=== PATIENT | male | born 1965 | race African-American/Black ===

== ENCOUNTER 2019-02-04 17:39 | Inpatient (IN) | payer MEDICAID ==
[~2019-02-04] VITALS: Ht 182.9 cm; Wt 111.1 kg
[2019-02-04] MEDS ORDERED: TETANUS, DIPHTHERIA, PERTUSSIS VAC/PF 0.5ML (>7YR OLD) IM ONE (18:30)
[2019-02-04] MEDS ORDERED: BACITRACIN ZINC OINT UDPKT TOP ONE (18:30)
[2019-02-04] MEDS ORDERED: LIDOCAINE HCL/PF 1% 10 MG/ML 5ML VIAL IJ ONE (18:30)
[2019-02-04] MEDS ORDERED: SODIUM CHLORIDE 0.9% 1,000 ML IV ONE (18:45)
[2019-02-04 19:24] LABS: BASOPHILS % 0.9 % (0.0-2.0); EOSINOPHILS % 1.8 % (0.0-5.0); HEMATOCRIT. 41.9 % (42.0-52.0); LYMPHOCYTES % 20.2 % (20.0-50.0); MEAN CORPUSCULAR HEMOGLOBIN 29.3 pg (28.0-32.0); MEAN CORPUSCULAR VOLUME 87.9 fL (80.0-94.0); MEAN PLATELET VOLUME 7.4 fl (7.4-10.4); NEUTROPHILS % 67.1 % (40.0-76.0); PLATELET 342 x1000/uL (130-400); RED BLOOD CELL COUNT 4.77 mill/uL (4.7-6.1)
[2019-02-04 19:30] LABS: CHLORIDE 107 mEq/L (98-107)
[2019-02-04] MEDS ORDERED: KETOROLAC 30MG/ML VIAL IV ONE (19:30)
[2019-02-04] MEDS ORDERED: IOHEXOL-300 100 ML BOTTLE ONE (21:11)
[2019-02-04] MEDS ORDERED: VANCOMYCIN 1 G PREMIX 200 ML IV ONE (21:15)
[2019-02-04] MEDS ORDERED: PIPERACILLIN/TAZ 3.375G PREMIX 50 ML IV ONE (21:15)
[2019-02-04] MEDS ORDERED: SODIUM CHLORIDE 0.9% 1,000 ML IV SCH (23:06)
[2019-02-04] MEDS ORDERED: IBUPROFEN 600MG TABLET PO PRN (23:15)
[2019-02-05] VITALS: BP 136/88
[2019-02-05] MEDS ORDERED: CLONIDINE 0.1MG TABLET PO PRN
[2019-02-05] MEDS ORDERED: ACETAMINOPHEN 325MG TABLET PO PRN
[2019-02-05] MEDS ORDERED: GUAIFENESIN 200MG/10ML SUGAR FREE UDC PO PRN
[2019-02-05] MEDS ORDERED: IPRATROPIUM/ALBUTEROL 0.5-3(2.5)MG/3ML NEB INH PRN
[2019-02-05] MEDS ORDERED: ENOXAPARIN 40MG/0.4ML SYR SUBCUT SCH
[2019-02-05] MEDS ORDERED: KETOROLAC 15MG/ML VIAL IV PRN
[2019-02-05] MEDS ORDERED: ONDANSETRON HCL 4MG/2ML INJ IV PRN
[2019-02-05] MEDS ORDERED: DOCUSATE SODIUM 100MG CAPSULE PO PRN
[2019-02-05] MEDS ORDERED: MAGNESIUM/ALUMINUM HYDROXIDE/SIMETHICONE 30ML UDC PO PRN
[2019-02-05] MEDS ORDERED: ZOLPIDEM TARTRATE 5MG TABLET PO PRN
[2019-02-05 00:30] VITALS: BP 136/80
[2019-02-05] MEDS ORDERED: IBUPROFEN 600MG TABLET PO PRN (00:30)
[2019-02-05] MEDS: CLINDAMYCIN 600 MG in DEXTROSE 5% WATER 50 ML IV SCH ×2 (03:28→08:45)
[2019-02-05 04:00] VITALS: BP 141/83
[2019-02-05] MEDS ORDERED: ALBU05 NEB (04:29)
[2019-02-05 08:00] VITALS: BP 117/68
[2019-02-05] MEDS ORDERED: FAMOTIDINE 20MG TABLET PO SCH (09:00)
[2019-02-05] MEDS ORDERED: ENOXAPARIN 30MG/0.3ML SYR SUBCUT SCH (09:00)
[2019-02-05 10:06] VITALS: BP 117/68
== END 2019-02-05 11:00 | disposition home or self-care (01) | DRG 114 ==
LOC: ER 18:06 → 6EST 21:09 → EDBEDREQ 22:25 → EDBEDREQSVC 22:25 → ENRESERV 22:44
PROVIDERS: ADMIT Internal Medicine; ATTEND Internal Medicine
DX: K04.7 Periapical abscess without sinus (principal); L02.01 Cutaneous abscess of face; L03.211 Cellulitis of face
CPT/HCPCS: 36415; 70487; 80048; 96374; 99285; J1650; J1885; J2543; J3370; J3490; J7030; J7060; Q9967

== ENCOUNTER 2019-03-17 17:22 | Emergency (ER) | payer MEDICAID ==
[~2019-03-17] VITALS: Ht 185.4 cm; Wt 108.0 kg
[~2019-03-17 17:22] MED LIST: ALBU05 NEB
[2019-03-17] MEDS ORDERED: LIDOCAINE HCL/PF 1% 10 MG/ML 5ML VIAL IJ ONE (18:00)
[2019-03-17] MEDS ORDERED: BACITRACIN ZINC OINT UDPKT TOP ONE (18:00)
[2019-03-17 20:14] VITALS: BP 134/72
== END 2019-03-17 20:14 | disposition home or self-care (01) ==
LOC: ER 17:22
DX: S01.81XA Laceration without foreign body of other part of head, initial encounter (principal); X58.XXXA Exposure to other specified factors, initial encounter; Y93.89 Activity, other specified; Y92.9 Unspecified place or not applicable
CPT/HCPCS: 12011; 99283; J3490

== ENCOUNTER 2025-05-02 02:02 | Emergency (ER) | payer MEDICAID ==
[~2025-05-02] VITALS: Ht 182.9 cm; Wt 90.0 kg
[2025-05-02 02:20] VITALS: TEMP 36.9; O2SAT 98
[2025-05-02] MEDS ORDERED: IBUP-2028 MT (04:20)
[2025-05-02] MEDS ORDERED: NAPHADR LEFTEYE (04:20)
[2025-05-02 05:09] VITALS: BP 139/88; PULSE 70; RESP 16; O2SAT 97
== END 2025-05-02 05:11 | disposition home or self-care (01) ==
LOC: ER 02:02
DX: H11.32 Conjunctival hemorrhage, left eye (principal); J45.909 Unspecified asthma, uncomplicated; Z79.899 Other long term (current) drug therapy
CPT/HCPCS: 99282